=== PATIENT | female | born 1980 | race African-American/Black ===

== ENCOUNTER 2016-04-13 14:28 | Inpatient (IN) | payer MEDICAID, OTHER ==
[~2016-04-13] VITALS: Ht 167.6 cm; Wt 106.4 kg
[~2016-04-13 14:28] MED LIST: LISI-360 PO
[2016-04-13 14:31] VITALS: BP 127/86; PULSE 78; RESP 12; TEMP 98.4; O2SAT 100
[2016-04-13 16:30] VITALS: BP 130/77; PULSE 88; RESP 18; TEMP 98.9; O2SAT 100
--- NOTE | 2016-04-13 18:02 | PD ---
HPI Chief Complaint: Psychiatric Symptoms Time Seen by Provider: 17:57 Travel History International Travel<30 days: No Contact w/Intl Traveler<30days: No Traveled to known affect area: No History of Present Illness HPI 36-year-old female presents to the emergency room voluntarily for psychiatric evaluation. Patient states she has multiple personalities who are trying to kill each other. Her plan is to overdose on her medications including hydrocodone, tramadol, and amitriptyline. She denies hallucinations or delusions. Denies any acute medical complaints. History of hypertension, asthma, and hemorrhagic stroke in 2015. Occasionally drinks alcohol. Denies smoking cigarettes or illicit drug use. PFSH Past Medical History Asthma: Yes Diminished Hearing: No Hypertension: Yes Immunizations Current: No Migraines: Yes : 3 Para: 1 Miscarriage: 2 : 0 Past Surgical History Gynecologic Surgery: Yes (D & C X2) Social History Alcohol Use: Yes (glass a wine yesterday) Tobacco Use: No Substance Use: No Allergies-Medications (Allergen,Severity, Reaction): Coded Allergies: No Known Allergies (Verified , 04/13/16) Reported Meds & Prescriptions Reported Meds & Active Scripts Active Reported Lisinopril 10 Mg Tab 10 Mg PO DAILY Review of Systems Except as stated in HPI: all other systems reviewed are Neg Physical Exam Narrative GENERAL: Well-nourished, well-developed female in no acute distress. Afebrile. Ambulatory. SKIN: Warm and dry. HEAD: Normocephalic. EYES: No scleral icterus. No injection or drainage. NECK: Supple, trachea midline. No JVD or lymphadenopathy. CARDIOVASCULAR: Regular rate and rhythm without murmurs, gallops, or rubs. RESPIRATORY: Breath sounds equal bilaterally. No accessory muscle use. PSYCHIATRIC: No delusional thought processes. No hallucinations. Data Data Last Documented VS Vital Signs Date Time Temp Pulse Resp B/P Pulse Ox O2 Delivery O2 Flow Rate FiO2 04/13/16 19:01 81 18 132/81 100 Room Air 04/13/16 16:30 98.9 Orders Diet Regular Basic (04/13/16 Dinner) Complete Blood Count With Diff (04/13/16 17:41) Basic Metabolic Panel (Bmp) (04/13/16 17:41) Drug Screen, Random Urine (04/13/16 17:41) Alcohol (Ethanol) (04/13/16 17:41) Psych Screen (04/13/16 17:41) Labs Laboratory Tests Test 04/13/16 04/13/16 04/13/16 15:45 18:32 19:31 Urine Opiates Screen NEG Urine Barbiturates Screen POS Urine Amphetamines Screen NEG Urine Benzodiazepines Screen NEG Urine Cocaine Screen NEG Urine Cannabinoids Screen NEG White Blood Count 11.8 TH/MM3 Red Blood Count 3.88 MIL/MM3 Hemoglobin 10.9 GM/DL Hematocrit 33.6 % Mean Corpuscular Volume 86.6 FL Mean Corpuscular Hemoglobin 28.2 PG Mean Corpuscular Hemoglobin 32.6 % Concent Red Cell Distribution Width 15.8 % Platelet Count 466 TH/MM3 Mean Platelet Volume 9.2 FL Neutrophils (%) (Auto) 61.7 % Lymphocytes (%) (Auto) 26.9 % Monocytes (%) (Auto) 4.6 % Eosinophils (%) (Auto) 6.1 % Basophils (%) (Auto) 0.7 % Neutrophils # (Auto) 7.3 TH/MM3 Lymphocytes # (Auto) 3.2 TH/MM3 Monocytes # (Auto) 0.5 TH/MM3 Eosinophils # (Auto) 0.7 TH/MM3 Basophils # (Auto) 0.1 TH/MM3 CBC Comment DIFF FINAL Differential Comment Sodium Level 134 MEQ/L Potassium Level 4.2 MEQ/L Chloride Level 100 MEQ/L Carbon Dioxide Level 25.8 MEQ/L Anion Gap 8 MEQ/L Blood Urea Nitrogen 14 MG/DL Creatinine 1.53 MG/DL Estimat Glomerular Filtration 46 ML/MIN Rate Random Glucose 101 MG/DL Calcium Level 9.3 MG/DL Ethyl Alcohol Level LESS THAN 3 MG/DL MDM Medical Decision Making Medical Screen Exam Complete: Yes Emergency Medical Condition: Yes Medical Record Reviewed: Yes Differential Diagnosis Mood disorder versus schizophrenia versus suicidal ideation versus depression Narrative Course 36-year-old female with history of hypertension presents to the emergency room voluntarily for evaluation of suicidal ideation. Patient states she has multiple personalities who are trying to kill each other. Her plan is to overdose on her medications including hydrocodone, tramadol, and amitriptyline. Vital signs stable. Patient has no physical complaints. Physical exam unremarkable. Alcohol level is negative. CBC shows very mild anemia. BMP is remarkable for elevated creatinine; last comparison was 4 years ago. Elevation could be due to history of hypertension, plan is to encourage fluids and follow- up outpatient. Chart screen is positive for barbiturates. Patient is medically cleared for psychiatric evaluation and disposition of this time. Diagnosis Primary Impression: Medical clearance for psychiatric admission Additional Impression: Acute kidney injury (nontraumatic) Condition: Stable Abiola Johnson Apr 13, 2016 18:02
[2016-04-13 18:56] LABS: AUTOMATED NEUTROPHIL # 7.3 TH/MM3 (1.8-7.7); BASOPHIL # 0.1 TH/MM3 (0-0.2); BASOPHIL % 0.7 % (0.0-2.0); EOSINOPHIL # 0.7 TH/MM3 (0-0.4); EOSINOPHIL % 6.1 % (0.0-4.0); HEMATOCRIT 33.6 % (35.0-46.0); HEMO FLAGS DIFF FINAL; LYMPH % 26.9 % (9.0-44.0); LYMPHOCYTE # 3.2 TH/MM3 (1.0-4.8); MEAN CELL VOLUME 86.6 FL (80.0-100.0); MEAN CORPUSCULAR HEMOGLOBIN 28.2 PG (27.0-34.0); MEAN CORPUSCULAR HGB CONC 32.6 % (32.0-36.0); MONO % 4.6 % (0.0-8.0); NEUT % 61.7 % (16.0-70.0); PLATELET COUNT 466 TH/MM3 (150-450); RED BLOOD COUNT 3.88 MIL/MM3 (4.00-5.30); RED CELL DISTRIBUTION WIDTH 15.8 % (11.6-17.2); WHITE BLOOD COUNT 11.8 TH/MM3 (4.0-11.0)
[2016-04-13 19:01] VITALS: BP 132/81; PULSE 81; RESP 18; O2SAT 100
[2016-04-13 19:26] LABS: AMPHETAMINE, URINE NEG (NEG); BARBITURATES, URINE POS (NEG); COCAINE, URINE NEG (NEG)
[2016-04-13 20:12] LABS: ANION GAP 8 MEQ/L (5-15); BICARBONATE 25.8 MEQ/L (21.0-32.0); BLOOD UREA NITROGEN 14 MG/DL (7-18); CHLORIDE 100 MEQ/L (98-107); GLOMERULAR FILTRATION RATE 46 ML/MIN (>89); POTASSIUM 4.2 MEQ/L (3.5-5.1); SODIUM (NA) 134 MEQ/L (136-145)
[2016-04-13] MEDS ORDERED: EFFE150C PO (21:16)
[2016-04-13] MEDS ORDERED: LISI40TA PO (21:16)
[2016-04-13] MEDS ORDERED: HYDR25TA5 PO (21:16)
[2016-04-13] MEDS ORDERED: METH250T PO (21:16)
[2016-04-13] MEDS ORDERED: VENL75XR PO (21:16)
[2016-04-13] MEDS ORDERED: POTA99TA PO (21:16)
[2016-04-13] MEDS ORDERED: METO-426 PO (21:16)
[2016-04-13] MEDS ORDERED: ABIL5TAB6 PO (21:16)
[2016-04-13] MEDS ORDERED: METHYLDOPA 250 MG TAB PO ONE (21:30)
[2016-04-13] MEDS ORDERED: METOPROLOL TARTRATE 25 MG TAB PO ONE (21:30)
[2016-04-13] MEDS ORDERED: hydrOXYzine HCL 50 MG TAB PO ONE (21:30)
[2016-04-13 22:00] VITALS: BP 134/91; PULSE 96; RESP 18; O2SAT 97
[2016-04-14 02:13] VITALS: BP 133/80; PULSE 79; RESP 18; O2SAT 98
[2016-04-14 02:30] VITALS: BP 171/95; PULSE 69; RESP 18; TEMP 97.6
[2016-04-14] MEDS ORDERED: hydrOXYzine HCL 50 MG TAB PO PRN (03:15)
[2016-04-14] MEDS ORDERED: ALUMINUM/MAGNESIUM/SIMETH 30 ML CUP PO PRN (03:15)
[2016-04-14] MEDS ORDERED: ACETAMINOPHEN 325 MG TAB PO PRN (03:15)
[2016-04-14] MEDS ORDERED: MAGNESIUM HYDROXIDE SUSP 30 ML CUP PO PRN (03:15)
[2016-04-14 05:43] VITALS: BP 142/89; PULSE 80; RESP 18; TEMP 98; O2SAT 97
[2016-04-14] MEDS: METHYLDOPA 250 MG TAB PO SCH ×2 (09:00→20:17)
[2016-04-14] MEDS ORDERED: ARIPiprazole 5 MG TAB PO SCH (09:00)
[2016-04-14] MEDS ORDERED: LISINOPRIL 20 MG TAB PO SCH ×2 (09:00)
[2016-04-14] MEDS: LISINOPRIL 20 MG TAB PO SCH ×2 (09:13→20:17)
[2016-04-14] MEDS: METOPROLOL TARTRATE 50 MG TAB PO SCH ×2 (09:13→20:19)
[2016-04-14] MEDS: POTASSIUM CHLORIDE 20 MEQ CONTROLLED RELEASE TAB PO SCH (09:13)
[2016-04-14] MEDS: VENLAFAXINE HCL XR 75 MG CAP PO SCH (09:13)
[2016-04-14] MEDS: HYDROCHLOROTHIAZIDE 25 MG TAB PO SCH (09:13)
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
--- NOTE | 2016-04-14 16:26 | PD.CONS ---
[facility] By [facility]. Uribe Reason for Consult Antihypertensive medication Primary Care Physician Non-Staff Diagnoses: History of Present Illness This is a morbidly obese 36-year-old female patient with past medical history which includes hemorrhagic CVA in September 2014, hypertension, heart murmur, left ventricular hypertrophy and degenerative disc disease. Patient is currently admitted to inpatient psychiatric center and we have been consulted for assistance with antihypertensive medications. Patient takes hydrochlorothiazide 25 mg daily, lisinopril 40 mg twice a day, metoprolol 75 mg twice a day in addition to Lasix 10 mg daily. Patient reports she has taken and amlodipine in the past but was unable to tolerate due to lower extremity edema. Patient denies headaches or visual changes feeling lightheaded or dizzy. Patient also denies chest pain shortness of breath nausea vomiting diarrhea constipation fevers or chills. Review of Systems Other All other systems reviewed and negative except as mentioned in history of present illness Past Family Social History Allergies: Coded Allergies: No Known Allergies (Verified , 04/13/16) Past Medical History hemorrhagic CVA in September 2014, hypertension, heart murmur, left ventricular hypertrophy and degenerative disc disease Past Surgical History D&C 2 Reported Medications Methyldopa 250 Mg Tab 250 Mg PO BID Abilify (Aripiprazole) 5 Mg Tab 5 Mg PO DAILY Potassium 99 Mg Tab 20 Meq PO DAILY Effexor XR 24 HR (Venlafaxine HCl) 75 Mg Cap 75 Mg PO DAILY Effexor XR 24 HR (Venlafaxine HCl) 150 Mg Cap 150 Mg PO DAILY Hydrochlorothiazide 25 Mg Tab 25 Mg PO DAILY Metoprolol Tartrate 75 Mg Tab 75 Mg PO BID Lisinopril 40 Mg Tab 40 Mg PO BID Lasix 10 mg daily Active Ordered Medications Current Medications Medications (Trade) Dose Ordered Sig/Ruddy Route Start Time Stop Time Status Last Admin (Prinivil) 40 mg BID PO 04/14/16 09:00 04/14/16 09:13 (Lopressor) 75 mg BID PO 04/14/16 09:00 04/14/16 09:13 (Hydrodiuril) 25 mg DAILY PO 04/14/16 09:00 04/14/16 09:13 (Effexor Xr) 225 mg DAILY PO 04/14/16 09:00 04/14/16 09:13 (KCl) 20 meq DAILY PO 04/14/16 09:00 04/14/16 09:13 (Aldomet) 250 mg BID PO 04/14/16 09:00 (Atarax) 50 mg Q6H PRN PO 04/14/16 03:15 (Tylenol) 650 mg Q4H PRN PO 04/14/16 03:15 (Milk Of Magnesia Liq) 30 ml DAILY PRN PO 04/14/16 03:15 (Mag-Al Plus Susp Liq) 30 ml Q6H PRN PO 04/14/16 03:15 (Abilify) 10 mg DAILY PO 04/15/16 09:00 (Elavil) 75 mg HS PO 04/14/16 21:00 Family History Mother 62 alive with hypertension Father is 73 alive has history of KS 3 first KS at age 33 also has type 2 diabetes Social History EtOH occasionally proximally once every 2 weeks Denies tobacco use and denies illicit drug use Physical Exam Vital Signs Vital Signs Date Time Temp Pulse Resp B/P Pulse Ox O2 Delivery O2 Flow Rate FiO2 04/14/16 05:43 98.0 80 18 142/89 97 04/14/16 02:30 97.6 69 18 171/95 04/14/16 02:13 79 18 133/80 98 Room Air 04/13/16 22:00 96 18 134/91 97 Room Air 04/13/16 19:01 81 18 132/81 100 Room Air 04/13/16 16:30 98.9 88 18 130/77 100 Physical Exam GENERAL: This is a morbidly obese female, well-developed patient, in no apparent distress. SKIN: No rashes, ecchymoses or lesions. Cool and dry. HEAD: Atraumatic. Normocephalic. No temporal or scalp tenderness. EYES: Extraocular motions intact. No scleral icterus. No injection or drainage. ENT: Nose without bleeding, purulent drainage or septal hematoma. Throat without erythema, tonsillar hypertrophy or exudate. Uvula midline. Airway patent. NECK: Trachea midline. No JVD or lymphadenopathy. Supple, nontender, no meningeal signs. CARDIOVASCULAR: Difficult to auscultate due to body habitus Regular rate and rhythm without murmurs, gallops, or rubs appreciated. RESPIRATORY: Difficult to auscultate due to body habitus Clear to auscultation. Breath sounds equal bilaterally. No wheezes, rales, or rhonchi. GASTROINTESTINAL: Abdomen soft, non-tender, nondistended. No guarding. MUSCULOSKELETAL: Extremities without clubbing, cyanosis, or edema. No joint tenderness, effusion, or edema noted. No calf tenderness. Negative Homans sign bilaterally. NEUROLOGICAL: Awake and alert. No focal deficit appreciated. Motor and sensory grossly within normal limits. Five out of 5 muscle strength in all muscle groups. Normal speech. Laboratory Laboratory Tests Test 04/13/16 04/13/16 18:32 19:31 White Blood Count 11.8 Red Blood Count 3.88 Hemoglobin 10.9 Hematocrit 33.6 Mean Corpuscular Volume 86.6 Mean Corpuscular Hemoglobin 28.2 Mean Corpuscular Hemoglobin 32.6 Concent Red Cell Distribution Width 15.8 Platelet Count 466 Mean Platelet Volume 9.2 Neutrophils (%) (Auto) 61.7 Lymphocytes (%) (Auto) 26.9 Monocytes (%) (Auto) 4.6 Eosinophils (%) (Auto) 6.1 Basophils (%) (Auto) 0.7 Neutrophils # (Auto) 7.3 Lymphocytes # (Auto) 3.2 Monocytes # (Auto) 0.5 Eosinophils # (Auto) 0.7 Basophils # (Auto) 0.1 CBC Comment DIFF FINAL Differential Comment Sodium Level 134 Potassium Level 4.2 Chloride Level 100 Carbon Dioxide Level 25.8 Anion Gap 8 Blood Urea Nitrogen 14 Creatinine 1.53 Estimat Glomerular Filtration 46 Rate Random Glucose 101 Calcium Level 9.3 Ethyl Alcohol Level LESS THAN 3 Result Diagram: 04/13/16 1832 04/13/16 1931 Assessment and Plan Assessment and Plan This is a morbidly obese 36-year-old female patient with past medical history which includes hemorrhagic CVA in September 2014, hypertension, heart murmur, left ventricular hypertrophy and degenerative disc disease. Patient is currently admitted to inpatient psychiatric center and we have been consulted for assistance with antihypertensive medications. Patient takes hydrochlorothiazide 25 mg daily, lisinopril 40 mg twice a day, metoprolol 75 mg twice a day in addition to Lasix 10 mg daily. Hypertension hydrochlorothiazide 25 mg daily, decrease to lisinopril 20 mg twice a day, metoprolol 75 mg twice a day add clonidine 0.1 mg PRN Recheck BMP elevated creatinine 1.53 on admission History of hemorrhagic CVA monitor blood pressure closely History of cardiac murmur and LVH recommend patient continue to follow-up with outpatient graduate engineer after discharge Adjustment disorder and history of dissociative dissociative disorder management per psychiatric team Plan DVT prophylaxis patient is ambulatory Plan of care discussed with patient, RN and Dr. Whalen Discussed Condition With The exam, history, and the medical decision-making described in the above note were completed with the assistance of the mid-level provider. I reviewed and agree with the findings presented. I attest that I had a [id number] encounter with the patient on the same day, and personally performed and documented my assessment and findings in the medical record. Aracely Leo Apr 14, 2016 16:26 Carlo Whalen MD Apr 23, 2016 16:12
[2016-04-14] MEDS ORDERED: cloNIDine HCL 0.1 MG TAB PO PRN (17:00)
[2016-04-14 18:00] VITALS: BP 113/67; PULSE 74; RESP 17; TEMP 97.9; O2SAT 100
[2016-04-14] MEDS: AMITRIPTYLINE HCL 75 MG TAB PO SCH (20:17)
[2016-04-14] MEDS: POVIDONE IODINE 10% SOLN 118 ML BOTTLE TOPICAL SCH (21:00)
[2016-04-15 05:56] VITALS: BP 132/91; PULSE 93; RESP 16; TEMP 98.5
[2016-04-15 07:08] LABS: BLOOD, URINE NEG (NEG); COMMENT (UR) CULT NOT INDICATED; CULTURE IF INDICATED CULT NOT INDICATED; GLUCOSE,URINE NEG (NEG); KETONE, URINE NEG (NEG); NITRITE,URINE NEG (NEG); PH, URINE 5.5 (5.0-8.5); SQUAMOUS EPITHELIAL CELL URINE 3 /hpf (0-5); URINE COLOR LIGHT-YELLOW (YELLW/STRAW)
[2016-04-15] MEDS: POVIDONE IODINE 10% SOLN 118 ML BOTTLE TOPICAL SCH ×2 (09:00→20:28)
[2016-04-15] MEDS: LISINOPRIL 20 MG TAB PO SCH ×2 (09:18→20:28)
[2016-04-15] MEDS: HYDROCHLOROTHIAZIDE 25 MG TAB PO SCH (09:19)
[2016-04-15] MEDS: METOPROLOL TARTRATE 50 MG TAB PO SCH ×2 (09:19→20:27)
[2016-04-15] MEDS: VENLAFAXINE HCL XR 75 MG CAP PO SCH (09:19)
[2016-04-15] MEDS: POTASSIUM CHLORIDE 20 MEQ CONTROLLED RELEASE TAB PO SCH (09:19)
[2016-04-15] MEDS: ARIPiprazole 10 MG TAB PO SCH (09:19)
[2016-04-15 09:20] LABS: ALKALINE PHOSPHATASE 39 U/L (45-117); ALT (GPT) 22 U/L (10-53); ANION GAP 8 MEQ/L (5-15); AST (GOT) 13 U/L (15-37); BICARBONATE 25.2 MEQ/L (21.0-32.0); BLOOD UREA NITROGEN 16 MG/DL (7-18); CHLORIDE 103 MEQ/L (98-107); GLOMERULAR FILTRATION RATE 47 ML/MIN (>89); HDL CHOLESTEROL 42.3 MG/DL (40.0-60.0); LDL CHOLESTEROL 79 MG/DL (0-99); POTASSIUM 4.9 MEQ/L (3.5-5.1); SODIUM (NA) 136 MEQ/L (136-145); TOTAL BILIRUBIN ADULT 0.2 MG/DL (0.2-1.0)
[2016-04-15] MEDS: METHYLDOPA 250 MG TAB PO SCH ×2 (09:24→20:28)
--- NOTE | 2016-04-15 10:41 | HHI.PYPN ---
Subjective Remarks Patient seen in her room with nurse Petra and medical student Diane, chart reviewed patient calmer her affect is calmer, denies suicidality homicidality voices or visions states she had a fairly distant phone call with her mother yesterday. Patient is pleased with the medication at this time says she slept well last night. She is aware of her need for counseling when she is discharged. For now continue treatment Review of Systems Except as stated in HPI: all other systems reviewed are Neg Objective Alert: Yes [place]: Person, Place, Date, Situation Mood: Calm, Depressed Affect: Restricted Memory Intact: Comment Hallucinations: Other Delusions: No Delusion Type: Other (fair denies) Suicidal: Ideation (denies) Homicidal: Ideation (denies) Insight/Judgement Poor to fair Labs Test 04/15/16 04/15/16 05:15 07:52 Urine Color LIGHT-YELLOW Urine Turbidity CLEAR Urine pH 5.5 Urine Specific [place] 1.011 Urine Protein TRACE mg/dL Urine Glucose (UA) NEG mg/dL Urine Ketones NEG mg/dL Urine Occult Blood NEG Urine Nitrite NEG Urine Bilirubin NEG Urine Urobilinogen LESS THAN 2.0 MG/DL Urine Leukocyte Esterase TRACE Urine WBC 3 /hpf Urine Squamous Epithelial 3 /hpf Cells Microscopic Urinalysis Comment CULT NOT INDICATED Sodium Level 136 MEQ/L Potassium Level 4.9 MEQ/L Chloride Level 103 MEQ/L Carbon Dioxide Level 25.2 MEQ/L Anion Gap 8 MEQ/L Blood Urea Nitrogen 16 MG/DL Creatinine 1.51 MG/DL Estimat Glomerular Filtration 47 ML/MIN Rate Random Glucose 92 MG/DL Calcium Level 9.3 MG/DL Total Bilirubin 0.2 MG/DL Aspartate Amino Transf 13 U/L (AST/SGOT) Alanine Aminotransferase 22 U/L (ALT/SGPT) Alkaline Phosphatase 39 U/L Total Protein 8.6 GM/DL Albumin 3.8 GM/DL Triglycerides Level 265 MG/DL Cholesterol Level 174 MG/DL LDL Cholesterol 79 MG/DL HDL Cholesterol 42.3 MG/DL Cholesterol/HDL Ratio 4.11 RATIO Thyroid Stimulating Hormone 1.410 uIU/ML 3rd Gen Vitals/IOs Vital Signs Date Time Temp Pulse Resp B/P Pulse Ox O2 Delivery O2 Flow Rate FiO2 04/15/16 05:56 98.5 93 16 132/91 04/14/16 18:00 100 04/14/16 02:13 Room Air Assessment & Plan Problem List: (1) Adjustment disorder with mixed disturbance of emotions and conduct ICD Code: F43.25 (2) History of dissociative disorder ICD Code: Z86.59 Assessment & Plan Estimated LOS: days patient's depression is somewhat lifted, patient showing some insight into her issues. Compliant medications. Justification for Cont. Inpt. At this time patient would significantly decompensate if placed in the lower level of care Discharge Planning To be determined Request HC Surrog/Guard Advoc?: No Vicente Uribe MD Apr 15, 2016 10:41
[2016-04-15 11:46] LABS: HEMOGLOBIN A1a 1.1 %; HEMOGLOBIN A1b 1.5 %; HEMOGLOBIN Ao 85.1 %; HEMOGLOBIN LA1C 2.1 %
[2016-04-15 18:00] VITALS: BP 101/43; PULSE 90; RESP 18; TEMP 98.6; O2SAT 97
[2016-04-15] MEDS ORDERED: PADIMATE (CHAPSTICK) 4.5 GM TUBE TOPICAL PRN (19:15)
[2016-04-15] MEDS: AMITRIPTYLINE HCL 75 MG TAB PO SCH (20:26)
[2016-04-16 06:08] VITALS: BP 113/68; PULSE 72; RESP 16; TEMP 98.1
[2016-04-16] MEDS: POTASSIUM CHLORIDE 20 MEQ CONTROLLED RELEASE TAB PO SCH (08:48)
[2016-04-16] MEDS: LISINOPRIL 20 MG TAB PO SCH (08:48)
[2016-04-16] MEDS: METHYLDOPA 250 MG TAB PO SCH (08:49)
[2016-04-16] MEDS: ARIPiprazole 10 MG TAB PO SCH (08:49)
[2016-04-16] MEDS: METOPROLOL TARTRATE 50 MG TAB PO SCH (08:49)
[2016-04-16] MEDS: VENLAFAXINE HCL XR 75 MG CAP PO SCH (08:49)
[2016-04-16] MEDS: HYDROCHLOROTHIAZIDE 25 MG TAB PO SCH (08:49)
[2016-04-16] MEDS: POVIDONE IODINE 10% SOLN 118 ML BOTTLE TOPICAL SCH (09:00)
[2016-04-16] MEDS ORDERED: METH250T PO (13:43)
[2016-04-16] MEDS ORDERED: POTA20TA5 PO (13:43)
[2016-04-16] MEDS ORDERED: ARIP1TAB12 PO (13:43)
[2016-04-16] MEDS ORDERED: LISI-515 PO (13:43)
[2016-04-16] MEDS ORDERED: HYDR25TA5 PO (13:43)
[2016-04-16] MEDS ORDERED: [UNRECOGNIZED DRUG - CODE] TOPICAL (13:43)
[2016-04-16] MEDS ORDERED: VENL75XR PO (13:43)
[2016-04-16] MEDS ORDERED: Amitriptyline PO (13:43)
[2016-04-16] MEDS ORDERED: METO-309 PO (13:43)
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
[2016-04-19 23:59] LABS: AMIT COMBINED TOTAL 69 ng/mL (80-200); NORTRIPTYLINE 23 ng/mL (70-170)
== END 2016-04-16 14:58 | disposition home or self-care (01) | DRG 882 ==
LOC: NEPJ 14:28 → NEDA 04-14 01:03 → H260 04-14 02:12
PROVIDERS: ADMIT Psychiatry & Neurology Psychiatry; ATTEND Psychiatry & Neurology Psychiatry
DX: F43.25 Adjustment disorder with mixed disturbance of emotions and conduct (principal); R45.851 Suicidal ideations; E66.01 Morbid (severe) obesity due to excess calories; I10 Essential (primary) hypertension; K21.9 Gastro-esophageal reflux disease without esophagitis; Z86.59 Personal history of other mental and behavioral disorders; Z86.73 Personal history of transient ischemic attack (TIA), and cerebral infarction without residual deficits; J45.909 Unspecified asthma, uncomplicated
CPT/HCPCS: 80048; 80053; 80061; 80307; 80320; 80335; 81001; 83036; 84443; 85025; 99284; G0480